=== PATIENT | female | born 1955 | race Caucasian/White ===

== ENCOUNTER → 2016-07-01 | Outpatient (CLI) | payer BC, OTHER ==
[~2016-07-01] MED LIST: ALOCRIL5 ML OU; ASA CHILDREN'S81 MG PO; BRILINTA90 MG PO; CORDARONE DPS200 MG PO; COREG DPS12.5 MG PO; COREG6.25 MG PO; COUMADIN2.5 MG PO; CRESTOR20 MG PO; EFFEXOR37.5 MG PO; FLONASE 0.05% D16 GM NS; HYDROCODONE 5MG/5 MG PO; PROMETHAZINE12.5 MG PO; SINGULAIR10 MG PO; TYLENOL325 MG PO; VIBRAMYCIN-DPS100 M1 PO; ZANTAC150 MG PO; ZYRTEC DPS10 MG PO
== END | disposition home or self-care (01) ==
LOC: RAD.S 10:41
DX: R10.11 Right upper quadrant pain (principal); N20.0 Calculus of kidney; N28.1 Cyst of kidney, acquired; R50.9 Fever, unspecified